=== PATIENT | female | born 1950 ===

== ENCOUNTER 2019-01-14 09:25 | Outpatient (CLI) | payer OTHER ==
[~2019-01-14] VITALS: Ht 149.9 cm; Wt 57.2 kg
[2019-01-14] MEDS ORDERED: FLONASE16 GM NASAL (11:03)
[2019-01-14] MEDS ORDERED: ZYRTEC10 MG PO (11:03)
[2019-01-14] MEDS ORDERED: ZANTAC300 MG PO (11:03)
== END 2019-01-14 15:17 | disposition home or self-care (01) ==
LOC: OFIC 805 09:25
DX: J31.0 Chronic rhinitis (principal); J34.3 Hypertrophy of nasal turbinates; J37.0 Chronic laryngitis; K21.9 Gastro-esophageal reflux disease without esophagitis; H90.3 Sensorineural hearing loss, bilateral